=== PATIENT | female | born 1995 | race Caucasian/White ===

== ENCOUNTER 2019-08-22 15:32 | Emergency (ER) | payer OTHER ==
[~2019-08-22] VITALS: Ht 170.2 cm; Wt 63.5 kg
[~2019-08-22 15:32] MED LIST: IBUPROFEN 600600 M1 PO; NORCO 5-325 TA1 EACH PO; VALIUM2 MG PO
[2019-08-22 15:35] VITALS: BP 146/105
[2019-08-22] MEDS ORDERED: GUAIFEN-CODEINE10 ML PO (16:13)
[2019-08-22] MEDS ORDERED: ZOFRAN ODT4 MG PO (16:18)
== END 2019-08-22 16:26 | disposition home or self-care (01) ==
LOC: ER 15:32
DX: Z20.828 Contact with and (suspected) exposure to other viral communicable diseases (principal); R42 Dizziness and giddiness; R50.9 Fever, unspecified; R11.0 Nausea; R53.81 Other malaise; R53.1 Weakness; Z79.899 Other long term (current) drug therapy; Z88.1 Allergy status to other antibiotic agents; Z88.0 Allergy status to penicillin

== ENCOUNTER 2019-09-01 17:24 | Emergency (ER) | payer OTHER ==
[~2019-09-01] VITALS: Ht 167.6 cm; Wt 60.8 kg
[~2019-09-01 17:24] MED LIST changes: +GUAIFEN-CODEINE10 ML PO; +ZOFRAN ODT4 MG PO
[2019-09-01 18:31] LABS: URINE BILIRUBIN NEGATIVE (Negative); URINE BLOOD NEGATIVE (Negative); URINE CLARITY CLEAR; URINE COLOR YELLOW; URINE GLUCOSE-RANDOM* NEGATIVE (Negative); URINE KETONES NEGATIVE (Negative); URINE LEUKOCYTES-REFLEX NEGATIVE (Negative); URINE NITRITE-REFLEX NEGATIVE (Negative); URINE PROTEIN (DIPSTICK) NEGATIVE (Negative); URINE UROBILINOGEN 0.2 E.U./dl (0.2-1.0)
[2019-09-01 19:01] LABS: ABSOLUTE NEUTROPHILS 3.1 thou/uL (1.4-8.2); BASOPHILS 0.7 % (0.0-2.0); EOSINOPHILS 0.8 % (0.0-3.0); HEMATOCRIT 44.5 % (37.0-47.0); HEMOGLOBIN 15.7 gm/dL (12.0-15.0); LYMPHOCYTES 34.8 % (24.0-44.0); MCH 32.6 pg (26.0-34.0); MCHC 35.4 g/dL (28.0-37.0); MCV 92.1 fL (80.0-100.0); MONOCYTES 9.3 % (1.0-8.0); PLATELET COUNT 215 thou/uL (150-400); POLYS 54.4 % (36.0-66.0); RBC 4.83 mil/uL (4.20-5.00); RDW 12.2 % (10.5-14.5); WBC 5.7 thou/uL (4.0-11.0)
[2019-09-01 19:18] LABS: CREATININE 0.9 mg/dL (0.6-1.0); POTASSIUM 3.6 mmol/L (3.5-5.1)
[2019-09-01 19:24] LABS: ALBUMIN 4.2 g/dL (3.4-5.0); TOTAL BILIRUBIN 0.3 mg/dL (<0.1-1.0); TOTAL PROTEIN 7.9 g/dL (6.4-8.2)
[2019-09-01] MEDS ORDERED: ONDANSETRON HCL4 M2 PO (19:52)
[2019-09-01] MEDS ORDERED: VENTOLIN HFA 1818 GM INH (19:52)
[2019-09-01 21:34] VITALS: BP 119/80
== END 2019-09-01 21:30 | disposition home or self-care (01) ==
LOC: ER 17:24
PROVIDERS: Physician Assistant
DX: R06.00 Dyspnea, unspecified (principal); R53.83 Other fatigue; R05 Cough; R11.2 Nausea with vomiting, unspecified; R63.0 Anorexia; Z20.828 Contact with and (suspected) exposure to other viral communicable diseases; Z79.899 Other long term (current) drug therapy; Z88.1 Allergy status to other antibiotic agents; Z88.0 Allergy status to penicillin

== ENCOUNTER → 2019-11-01 | Outpatient (CLI) | payer OTHER ==
[~2019-11-01] MED LIST changes: +ONDANSETRON HCL4 M2 PO; +VENTOLIN HFA 1818 GM INH
[2019-11-01 12:17] LABS: ABSOLUTE NEUTROPHILS 4.9 thou/uL (1.4-8.2); BASOPHILS 0.4 % (0.0-2.0); EOSINOPHILS 0.4 % (0.0-3.0); HEMATOCRIT 45.9 % (37.0-47.0); HEMOGLOBIN 15.8 gm/dL (12.0-15.0); LYMPHOCYTES 19.5 % (24.0-44.0); MCH 32.5 pg (26.0-34.0); MCHC 34.4 g/dL (28.0-37.0); MCV 94.4 fL (80.0-100.0); MONOCYTES 6.3 % (1.0-8.0); PLATELET COUNT 205 thou/uL (150-400); POLYS 73.4 % (36.0-66.0); RBC 4.86 mil/uL (4.20-5.00); RDW 12.1 % (10.5-14.5); WBC 6.7 thou/uL (4.0-11.0)
[2019-11-01 12:37] LABS: ALBUMIN 3.9 g/dL (3.4-5.0); CALCIUM 8.9 mg/dL (8.5-10.1); CREATININE 0.8 mg/dL (0.6-1.0); POTASSIUM 4.1 mmol/L (3.5-5.1); TOTAL BILIRUBIN 0.4 mg/dL (0.2-1.0); TOTAL PROTEIN 7.1 g/dL (6.4-8.2)
== END ==
LOC: LAB 11:34
PROVIDERS: ATTEND Family Medicine
DX: Z00.00 Encounter for general adult medical examination without abnormal findings (principal); R53.82 Chronic fatigue, unspecified

== ENCOUNTER → 2020-03-18 | Outpatient (CLI) | payer OTHER | LOC: LAB 10:17 | PROVIDERS: ATTEND Nurse Practitioner | DX: Z20.828 Contact with and (suspected) exposure to other viral communicable diseases (principal) ==

== ENCOUNTER → 2020-05-14 | Outpatient (CLI) | payer OTHER | LOC: LAB 13:41 | PROVIDERS: ATTEND Nurse Practitioner | DX: U07.1 COVID-19 (principal) ==